=== PATIENT | male | born 1965 | race Caucasian/White ===

== ENCOUNTER 2025-06-20 15:00 | Outpatient (AMB) | payer OTHER, SELFPAY ==
--- NOTE | 2025-06-20 15:05 | A.OFFVIS_ITS ---
Vital Signs 06/20/25 15:08 Height 5 ft 8 in Weight 207 lb BMI 31.5 BP 123/74 Blood Pressure Location Rt brachial Position Sitting Pulse 66 Intake Visit Reasons: Colonoscopy Screening Intake Note: Patient new consult for pre Colonoscopy screening. Patient denies any GI issues. 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 Referred by PCP for pre colonoscopy screening This will be his second colonoscopy; his first was approximately 10 years ago and had normal results. A referral note indicates he may have had a negative Cologuard test in 2021, though the patient does not recall this. He has daily bowel movements and denies any blood in the stool, abdominal pain, nausea, vomiting, heartburn, or difficulty swallowing. His appetite is good, and he reports an intentional weight loss of 20 pounds to a current weight of 207 pounds. His past medical history is notable for hypertension and hyperlipidemia, managed with lisinopril and rosuvastatin, respectively. He does not have a personal his tory of cancer or anemia. His family history is significant for a brother who from esophageal cancer and a father with a history of prostate cancer. He denies a family history of colon or stomach cancer. Social hx: -ETOH use drinks a couple of beers per week. -denies recreational drug use -non-smoker - family hx as below -denies personal hx of CA -denies significant cardiopulmonary history -tolerated anesthesia in the past without difficulty. PFSH Medical History (Updated 06/20/25 @ 15:10 by Molly Jack CNP) Colon cancer screening Surgical History H/O colonoscopy Family History (Updated 06/20/25 @ 15:20 by Molly Jack CNP) Father Prostate CA Brother Esophageal cancer Social History (Updated 06/20/25 @ 15:06 by Zenia Ramirez) Household Members: Family Alcohol intake: current Alcohol intake frequency: a few times a month Patient Tobacco Use Status: Never used Tobacco Use of substances other than those prescribed or required for medical reasons: No Review of Systems Const Reports as per [facility] ENT Reports as per [facility] Card Reports as per [facility] Resp Reports as per [facility] GI Reports as per [facility] Reports as per [facility] Physical Exam Const General: healthy appearing, no acute distress and well developed Nutritional Appearance: average body habitus Orientation/consciousness: patient oriented x3 HEENT Head: Yes normal to inspection, Yes normocephalic and Yes atraumatic Face and sinus: Yes normal facial exam Eyes General: appearance normal, both eyes and all related structures Neck Neck: Yes normal visual inspection Resp Effort & Inspection: normal respiratory effort, able to speak in complete se ntences, no tracheal deviation and symmetric chest movement Cardio Jugular venous distension: no JVD Neuro General: patient oriented x3 Gait exam (Neuro): Normal gait present Psych Appearance: grossly normal Mental Status: mental status grossly normal Speech and movement: Normal speech and movement present Affect: normal affect Attitude: cooperative Thought process: Normal thought process present Thought content: Normal thought content present Insight: Good insight present (Psych) Judgement: Good judgement present (Psych) Assessment & Plan Assessment & Plan (1) Colon cancer screening: Code(s): Z12.11 - Encounter for screening for malignant neoplasm of colon Category: Medical Plan: The patient is a suitable candidate for a routine screening colonoscopy, as he is without gastrointestinal symptoms and his prior colonoscopy was 10 years ago. - No additional workup is deemed necessary prior to the procedure. - An order for the colonoscopy will be placed, and the scheduling team will contact the patient to arrange the appointment. - The recommended bowel preparation is a MiraLax split-dose prep, consisting of a full bottle of MiraLax, 64 ounces of Gatorade, and four laxative tablets. - Prescriptions Rx to pharmacy, However advised to purchase generic if not covered. - Follow-up will be on an as-needed basis depending on the findings of the colonoscopy. Plan Follow-up as needed Time: I spent a total of 15 minutes on the date of encounter which includes: Preparing to see the patient (reviewed previous documentation, test results and medical history) Performing a medically appropriate exam and/or evaluation Ordering medications, tests, and procedures Documenting clinical information in the health record Orders: Referrals GI Procedure Notification Z12.11 - Encounter for screening for malignant neoplasm of colon Medications: New bisacodyl take four tablets once day of colonoscopy prep 20 mg (4 x 5 mg) PO ONCE 4 tabs 0RF polyethylene glycol 3350 (Miralax) per colonoscopy prep instructions 238 grams PO ONCE 238 grams 0RF Coding Level of Care Code New Pt New Pt Level 2 (50590) Patient Type New Diagnoses Colon cancer screening Z12.11
[2025-06-20 15:08] VITALS: BP 123/74; PULSE 66; BMI 31.5
--- OUTSIDE RECORDS SUMMARY | 2025-06-20 22:33 | XMS_ITS | Data Portability ---
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 [email or web address] Not available 07/23/2021 19:47:47 Plan of Treatment Reminders Order Date Submit Date Provider Last Modified By Organization Details Last Modified Time Details Appointments PCP-Francisco murray al-30 Min 2025 12:30P Óscar WALSH [employer] Not available Not available Not available Lab hepat itis C virus Ab, serum 2023 024 [email or web address] 0 [facility] Patient Reg, [address] [place], [address], 07/27/2024 09:02:35 prost ate speci fic Ag, serum or plasm a 2023 024 [email or web address] 0 [facility] Patient Reg, [address] [place], [address], 07/27/2024 09:02:35 CMP, serum or plasm a 2023 024 [facility] Patient Reg, [address] [place], [address], 04/12/2024 19:06:27 lipid panel , serum 2023 024 [facility] Patient Reg, [address] [place], [address], 04/12/2024 19:06:28 CBC 2023 024 [facility] Patient Reg, [address] [place], [address], 04/12/2024 18:38:29 CMP, serum or plasm a [address] Patient Reg, [address] [place], [address], 05/18/2023 09:01:12 lipid panel , serum [address] Patient Reg, [address] [place], [address], 05/18/2023 09:01:12 PSA, serum or plasm a 2021 022 [facility] Patient Reg, [address] [place], [address], 09/01/2021 09:39:47 BMP, serum or plasm a 2021 022 [facility] Patient Reg, [address] [place], [address], 08/25/2021 16:06:56 lipid panel w/ direc t LDL, serum 2021 022 [facility] Patient Reg, [address] [place], [address], 09/01/2021 09:39:47 CBC 2021 [email or web address] Not available 08/18/2021 13:42:34 CMP, serum or plasm a 2021 022 [email or web address] Not available 08/11/2021 20:33:03 HbA1c (hemo globi n A1c), blood 2021 [email or web address] Not available 07/31/2021 14:15:09 TSH, serum , refle x free T4 2021 [email or web address] Not available 07/31/2021 11:19:04 CBC 2021 [email or web address] Not available 07/31/2021 11:19:04 CMP, serum or plasm a 2021 SHALINI Not available 07/23/2021 16:41:23 Referral gastr romario fine ist refer neto corey and and advis e omayra xiong. Thank you! Due for colon lauren carrion. Famil y histo ry: 2023 024 [email or web address] [facility], [address] [place] [address] , [address] Ms, [place], [address], 10/31/2024 07:25:25 Procedures None recor ded. Surgeries None recor ded. Imaging None recor ded. Medication Orders lisin opril 30 mg table t 2021 [id number] [address] [facility] [address], 08/26/2021 03:30:23 lisin opril 20 mg table t 2021 022 [id number] [id number] [address] [facility] [place], [address], 09/16/2021 10:05:16 lisin opril 10 mg table t 2021 [id number] [address] [facility] [address], 08/20/2021 10:26:59 [email or web address] astat in 20 mg table t 2021 [id number] [address] [facility] [address], 07/23/2021 14:43:30 Patient TargetsNo targets recorded. Patient InstructionsNo instructions recorded. Reason for Referral Skin Specialist Referral for Screening for malignant neoplasm of colon Please schedule and and advise patient. Thank you! Due for colon cancer screening. Family history: Referring Physician: Stacy Braxton, Internal Medicine, Encounter Date: 04/12/2024 Results Created Date Observation Date Name Description Value Unit Range Abnormal Flag Note LastModifiedBy Organization Detail LastModifiedTime 07/23/19 22 07/23/2021 COMPL ETE BLOOD COUNT AUTO DIFF white blood count 11.71 K/uL 3.5-11 .0 high Not Available [facility] Laboratory Department [address] [place] [address], 60[address] 07/23/2021 16:04:21 07/23/19 22 07/23/2021 COMPL ETE BLOOD COUNT AUTO DIFF red blood count 5.47 M/uL 3.90-5 .50 normal Not Available [facility] Department [address] [place] [address], 168[address] 07/23/2021 16:04:21 07/23/19 22 07/23/2021 COMPL ETE BLOOD COUNT AUTO DIFF hemoglobin 16.5 g/dL 14.0-1 8.0 normal Not Available [facility] Department [address] [place] [address], 348[address] 07/23/2021 16:04:21 07/23/19 22 07/23/2021 COMPL ETE BLOOD COUNT AUTO DIFF hematocrit 49.1 % 42.0-5 4.0 normal Not Available [facility] Department [address] [place] [address], 31630 07/23/2021 16:04:21 07/23/19 22 07/23/2021 COMPL ETE BLOOD COUNT AUTO DIFF mean corpuscular volume 89.8 fL 80.0-1 00.0 normal Not Available [facility] Department [address] [place] [address], 736[address] 07/23/2021 16:04:21 07/23/19 22 07/23/2021 COMPL ETE BLOOD COUNT AUTO DIFF mean corpuscular hemoglobin 30.2 pg 25.4-3 4.6 normal Not Available [facility] Department [address] [place] [address], 913[address] 07/23/2021 16:04:21 07/23/19 22 07/23/2021 COMPL ETE BLOOD COUNT AUTO DIFF mean corpuscular HGB conc 33.6 g/dL 31.0-3 7.0 normal Not Available [facility] Department [address] [place] [address], 11870 07/23/2021 16:04:21 07/23/19 22 07/23/2021 COMPL ETE BLOOD COUNT AUTO DIFF red cell distribution width 14.8 % 11.5-1 4.5 high Not Available [facility] Department [address] [place] [address], 43833 07/23/2021 16:04:21 07/23/19 22 07/23/2021 COMPL ETE BLOOD COUNT AUTO DIFF platelet count 186 K/uL 150-40 0 normal Not Available [facility] Department [address] [place] [address], 98115 07/23/2021 16:04:21 07/23/19 22 07/23/2021 COMPL ETE BLOOD COUNT AUTO DIFF neutrophils percent auto 55.5 % 35.0-6 6.0 normal Not Available [facility] Department [address] [place] [address], 19828 07/23/2021 16:04:21 07/23/19 22 07/23/2021 COMPL ETE BLOOD COUNT AUTO DIFF lymphocytes percent auto 35.0 % 25.0-4 5.0 normal Not Available [facility] Department [address] [place] [address], 746[address] 07/23/2021 16:04:21 07/23/19 22 07/23/2021 COMPL ETE BLOOD COUNT AUTO DIFF monocytes percent auto 8.3 % 0.0-13 .0 normal Not Available [facility] Department [address] [place] [address], 57138 07/23/2021 16:04:21 07/23/19 22 07/23/2021 COMPL ETE BLOOD COUNT AUTO DIFF eosinophils percent auto 0.9 % 0.0-8. 0 normal Not Available [facility] Department [address] [place] [address], 16524 07/23/2021 16:04:21 07/23/19 22 07/23/2021 COMPL ETE BLOOD COUNT AUTO DIFF basophils percent auto 0.3 % 0.0-1. 0 normal Not Available [facility] Department [address] [place], [address] 07/23/2021 16:04:21 07/23/19 22 07/23/2021 COMPL ETE BLOOD COUNT AUTO DIFF neutrophils absolute auto 6.49 K/uL 1.5-7. 5 normal Cauti on: Inter preta tion of ANC resul ts witho ut inclu becki of the WBC diffe renti al resul ts may lead to lazaro eous diagn osis; for examp le, rox ng myelo proli ferat li or lymph oprol ifera tive disor ders. Not Available [facility] Department [address] [place] [address], 533[address] 07/23/2021 16:04:21 07/23/19 22 07/23/2021 COMPL ETE BLOOD COUNT AUTO DIFF lymphocytes absolute auto 4.10 K/uL 0.8-4. 8 normal Not Available [facility] Department [address] [place] [address], 15446 07/23/2021 16:04:21 07/23/19 22 07/23/2021 COMPL ETE BLOOD COUNT AUTO DIFF monocytes absolute auto 0.97 K/uL 0.4-1. 3 normal Not Available [facility] Department [address] [place] [address], 05758 07/23/2021 16:04:21 07/23/19 22 07/23/2021 COMPL ETE BLOOD COUNT AUTO DIFF eosinophils absolute auto 0.11 K/uL 0.0-0. 8 normal Not Available [facility] Department [address] [place] [address], 38565 07/23/2021 16:04:21 07/23/19 22 07/23/2021 COMPL ETE BLOOD COUNT AUTO DIFF basophils absolute auto 0.04 K/uL 0.0-0. 6 normal Not Available [facility] Department [address] [place] [address], 53777 07/23/2021 16:04:21 07/23/19 22 07/23/2021 THYRO ID STIMU LATIN G HORMO NE thyroid stimulating hormone 2.8100 uIU/m L 0.27-4 .2 normal Not Available [facility] Department [address] [place] [address], 04882 07/23/2021 16:29:13 07/23/19 22 07/23/2021 COMPR EHENS LI MET. PANEL sodium 143 mmol/ L 136-14 5 normal Not Available [facility] Department [address] [place], [address] 07/23/2021 16:41:23 07/23/19 22 07/23/2021 COMPR EHENS LI MET. PANEL potassium 4.1 mmol/ L 3.5-5. 1 normal Not Available [facility] Department [address] [place] [address], 23662 07/23/2021 16:41:23 07/23/19 22 07/23/2021 COMPR EHENS LI MET. PANEL chloride 103 mmol/ L 98-107 normal Not Available [facility] Department [address] [place] [address], 38898 07/23/2021 16:41:23 07/23/19 22 07/23/2021 COMPR EHENS LI MET. PANEL carbon dioxide 27.1 mmol/ L 22-29 normal Not Available [facility] Department [address] [place] [address], 31843 07/23/2021 16:41:23 07/23/19 22 07/23/2021 COMPR EHENS LI MET. PANEL anion gap 17 mmol/ L 10-20 normal Not Available [facility] Department [address] [place] [address], 43997 07/23/2021 16:41:23 07/23/19 22 07/23/2021 COMPR EHENS LI MET. PANEL blood urea nitrogen 14 mg/dL 6-20 normal Not Available [facility] Laboratory Department [address] [place] [address], 33586 07/23/2021 16:41:23 07/23/19 22 07/23/2021 COMPR EHENS LI MET. PANEL creatinine 1.17 mg/dL 0.70-1 .2 normal Not Available [facility] Department [address] [place] [address], 97449 07/23/2021 16:41:23 07/23/19 22 07/23/2021 COMPR EHENS LI MET. PANEL glomerular filtration rate 69 GFR Value : ml/mi n/1.7 3 squar e meter s * If patie nt is Afric an-Am nigel n, multi ply resul t by 1.159 Chron ic Kidne y Disea se is defin ed as less than 60 ml/mi n/1.7 3 squar e meter s. Kidne y failu re is less than 15 ml/mi n/1.7 3 squar e meter s Test is not perfo rmed on patie nts under the age of 18 Not Available [facility] Department [address] [place], [address] 07/23/2021 16:41:23 07/23/19 22 07/23/2021 COMPR EHENS LI MET. PANEL glucose 106 mg/dL 70-106 normal Not Available [facility] Department [address] [place], [address] 07/23/2021 16:41:23 07/23/19 22 07/23/2021 COMPR EHENS LI MET. PANEL calcium 9.4 mg/dL 8.4-10 .3 normal Not Available [facility] Department [address] [place], [address] 07/23/2021 16:41:23 07/23/19 22 07/23/2021 COMPR EHENS LI MET. PANEL bilirubin total 0.5 mg/dL 0.2-1. 2 normal Not Available [facility] Department [address] [place], [address] 07/23/2021 16:41:23 07/23/19 22 07/23/2021 COMPR EHENS LI MET. PANEL aspartate amino transferase 15 U/L 5-40 normal Not Available [facility] Laboratory Department [address] [place], [address] 07/23/2021 16:41:23 07/23/19 22 07/23/2021 COMPR EHENS LI MET. PANEL alanine aminotransfe rase 22 U/L 5-41 normal Not Available [facility] Laboratory Department [address] [place], [address] 07/23/2021 16:41:23 07/23/19 22 07/23/2021 COMPR EHENS LI MET. PANEL total protein 7.3 g/dL 6.4-8. 3 normal Not Available [facility] Department [address] [place], [address] 07/23/2021 16:41:23 07/23/19 22 07/23/2021 COMPR EHENS LI MET. PANEL albumin level 4.7 g/dL 3.5-5. 2 normal Not Available [facility] Department [address] [place], [address] 07/23/2021 16:41:23 07/23/19 22 07/23/2021 COMPR EHENS LI MET. PANEL globulin 2.6 gm/dL 2.0-3. 5 normal Not Available [facility] Department [address] [place] [address], 35224 07/23/2021 16:41:23 07/23/19 22 07/23/2021 COMPR EHENS LI MET. PANEL albumin globulin ratio 1.8 % 1.1-2. 5 normal Not Available [facility] Department [address] [place] [address], 12543 07/23/2021 16:41:23 07/23/19 22 07/23/2021 COMPR EHENS LI MET. PANEL alkaline phosphatase 92 U/L 40-129 normal Not Available [facility] Laboratory Department [address] [place] [address], 27893 07/23/2021 16:41:23 07/23/19 22 07/23/2021 HEMOG LOBIN A1C hemoglobin A1C % 5.6 % 4.0-5. 7 normal % of the total HgB Inter preta tion ----- ----- ----- --- ----- ----- ----- - <5.7 Consi stent with the absen ce of diabe herve 5.7-6 .4 Consi stent with incre ased risk for diabe herve (pred iabet es) > or = to 6.5 Consi stent with Diabe herve Not Available [facility] Department [address] [place] [address], 13311 07/23/2021 19:45:50 08/11/19 22 08/11/2021 COMPL ETE BLOOD COUNT AUTO DIFF white blood count 10.69 K/uL 3.5-11 .0 normal Not Available [facility] Department [address] [place] [address], 18826 08/11/2021 19:48:51 08/11/19 22 08/11/2021 COMPL ETE BLOOD COUNT AUTO DIFF red blood count 5.68 M/uL 3.90-5 .50 high Not Available [facility] Department [address] [place], [address] 08/11/2021 19:48:51 08/11/19 22 08/11/2021 COMPL ETE BLOOD COUNT AUTO DIFF hemoglobin 17.0 g/dL 14.0-1 8.0 normal Not Available [facility] Department [address] [place], [address] 08/11/2021 19:48:51 08/11/19 22 08/11/2021 COMPL ETE BLOOD COUNT AUTO DIFF hematocrit 50.9 % 42.0-5 4.0 normal Not Available [facility] Department [address] [place] [address], 43322 08/11/2021 19:48:51 08/11/19 22 08/11/2021 COMPL ETE BLOOD COUNT AUTO DIFF mean corpuscular volume 89.6 fL 80.0-1 00.0 normal Not Available [facility] Department [address] [place] [address], 42290 08/11/2021 19:48:51 08/11/19 22 08/11/2021 COMPL ETE BLOOD COUNT AUTO DIFF mean corpuscular hemoglobin 29.9 pg 25.4-3 4.6 normal Not Available [facility] Department [address] [place] [address], 56390 08/11/2021 19:48:51 08/11/19 22 08/11/2021 COMPL ETE BLOOD COUNT AUTO DIFF mean corpuscular HGB conc 33.4 g/dL 31.0-3 7.0 normal Not Available [facility] Department [address] [place] [address], 46015 08/11/2021 19:48:51 08/11/19 22 08/11/2021 COMPL ETE BLOOD COUNT AUTO DIFF red cell distribution width 14.5 % 11.5-1 4.5 normal Not Available [facility] Department [address] [place] [address], 79307 08/11/2021 19:48:51 08/11/19 22 08/11/2021 COMPL ETE BLOOD COUNT AUTO DIFF platelet count 201 K/uL 150-40 0 normal Not Available [facility] Department [address] [place] [address], 84842 08/11/2021 19:48:51 08/11/19 22 08/11/2021 COMPL ETE BLOOD COUNT AUTO DIFF neutrophils percent auto 56.7 % 35.0-6 6.0 normal Not Available [facility] Department [address] [place] [address], 38544 08/11/2021 19:48:51 08/11/19 22 08/11/2021 COMPL ETE BLOOD COUNT AUTO DIFF lymphocytes percent auto 33.7 % 25.0-4 5.0 normal Not Available [facility] Department [address] [place] [address], 16334 08/11/2021 19:48:51 08/11/19 22 08/11/2021 COMPL ETE BLOOD COUNT AUTO DIFF monocytes percent auto 8.2 % 0.0-13 .0 normal Not Available [facility] Department [address] [place] [address], 67661 08/11/2021 19:48:51 08/11/19 22 08/11/2021 COMPL ETE BLOOD COUNT AUTO DIFF eosinophils percent auto 1.0 % 0.0-8. 0 normal Not Available [facility] Department [address] [place] [address], 25842 08/11/2021 19:48:51 08/11/19 22 08/11/2021 COMPL ETE BLOOD COUNT AUTO DIFF basophils percent auto 0.4 % 0.0-1. 0 normal Not Available [facility] Department [address] [place] [address], 60241 08/11/2021 19:48:51 08/11/19 22 08/11/2021 COMPL ETE BLOOD COUNT AUTO DIFF neutrophils absolute auto 6.06 K/uL 1.5-7. 5 normal Cauti on: Inter preta tion of ANC resul ts witho ut inclu becki of the WBC diffe renti al resul ts may lead to lazaro eous diagn osis; for examp le, rox ng myelo proli ferat li or lymph oprol ifera tive disor ders. Not Available [facility] Department [address] [place] [address], 55704 08/11/2021 19:48:51 08/11/19 22 08/11/2021 COMPL ETE BLOOD COUNT AUTO DIFF lymphocytes absolute auto 3.60 K/uL 0.8-4. 8 normal Not Available [facility] Department [address] [place] [address], 71601 08/11/2021 19:48:51 08/11/19 22 08/11/2021 COMPL ETE BLOOD COUNT AUTO DIFF monocytes absolute auto 0.88 K/uL 0.4-1. 3 normal Not Available [facility] Department [address] [place] [address], 72174 08/11/2021 19:48:51 08/11/19 22 08/11/2021 COMPL ETE BLOOD COUNT AUTO DIFF eosinophils absolute auto 0.11 K/uL 0.0-0. 8 normal Not Available [facility] Department [address] [place] [address], 07514 08/11/2021 19:48:51 08/11/19 22 08/11/2021 COMPL ETE BLOOD COUNT AUTO DIFF basophils absolute auto 0.04 K/uL 0.0-0. 6 normal Not Available [facility] Department [address] [place] [address], 84602 08/11/2021 19:48:51 08/11/19 22 08/11/2021 COMPR EHENS LI MET. PANEL sodium 140 mmol/ L 136-14 5 normal Not Available [facility] Department [address] [place] [address], 00421 08/11/2021 20:33:03 08/11/19 22 08/11/2021 COMPR EHENS LI MET. PANEL potassium 4.7 mmol/ L 3.5-5. 1 normal Not Available [facility] Department [address] [place] [address], 04976 08/11/2021 20:33:03 08/11/19 22 08/11/2021 COMPR EHENS LI MET. PANEL chloride 102 mmol/ L 98-107 normal Not Available [facility] Department [address] [place] [address], 71719 08/11/2021 20:33:03 08/11/19 22 08/11/2021 COMPR EHENS LI MET. PANEL carbon dioxide 25.4 mmol/ L 22-29 normal Not Available [facility] Department [address] [place] [address], 31508 08/11/2021 20:33:03 08/11/19 22 08/11/2021 COMPR EHENS LI MET. PANEL anion gap 17 mmol/ L 10-20 normal Not Available [facility] Department [address] [place] [address], 24293 08/11/2021 20:33:03 08/11/19 22 08/11/2021 COMPR EHENS LI MET. PANEL blood urea nitrogen 13 mg/dL 6-20 normal Not Available [facility] Laboratory Department [address] [place], [address] 08/11/2021 20:33:03 08/11/19 22 08/11/2021 COMPR EHENS LI MET. PANEL creatinine 0.99 mg/dL 0.70-1 .2 normal Not Available [facility] Department [address] [place], [address] 08/11/2021 20:33:03 08/11/19 22 08/11/2021 COMPR EHENS LI MET. PANEL glomerular filtration rate 85 GFR Value : ml/mi n/1.7 3 squar e meter s * If patie nt is Afric an-Am nigel n, multi ply resul t by 1.159 Chron ic Kidne y Disea se is defin ed as less than 60 ml/mi n/1.7 3 squar e meter s. Kidne y failu re is less than 15 ml/mi n/1.7 3 squar e meter s Test is not perfo rmed on patie nts under the age of 18 Not Available [facility] Department [address] [place], [address] 08/11/2021 20:33:03 08/11/19 22 08/11/2021 COMPR EHENS LI MET. PANEL glucose 103 mg/dL 70-106 normal Not Available [facility] Department [address] [place], [address] 08/11/2021 20:33:03 08/11/19 22 08/11/2021 COMPR EHENS LI MET. PANEL calcium 9.7 mg/dL 8.4-10 .3 normal Not Available [facility] Department [address] [place], [address] 08/11/2021 20:33:03 08/11/19 22 08/11/2021 COMPR EHENS LI MET. PANEL bilirubin total 1.1 mg/dL 0.2-1. 2 normal Not Available [facility] Department [address] [place], [address] 08/11/2021 20:33:03 08/11/19 22 08/11/2021 COMPR EHENS LI MET. PANEL aspartate amino transferase 16 U/L 5-40 normal Not Available [facility] Laboratory Department [address] [place] [address], 21585 08/11/2021 20:33:03 08/11/19 22 08/11/2021 COMPR EHENS LI MET. PANEL alanine aminotransfe rase 23 U/L 5-41 normal Not Available [facility] Laboratory Department [address] [place], [address] 08/11/2021 20:33:03 08/11/19 22 08/11/2021 COMPR EHENS LI MET. PANEL total protein 7.3 g/dL 6.4-8. 3 normal Not Available [facility] Department [address] [place] [address], 50763 08/11/2021 20:33:03 08/11/19 22 08/11/2021 COMPR EHENS LI MET. PANEL albumin level 4.9 g/dL 3.5-5. 2 normal Not Available [facility] Department [address] [place] [address], 70903 08/11/2021 20:33:03 08/11/19 22 08/11/2021 COMPR EHENS LI MET. PANEL globulin 2.4 gm/dL 2.0-3. 5 normal Not Available [facility] Department [address] [place] [address], 95619 08/11/2021 20:33:03 08/11/19 22 08/11/2021 COMPR EHENS LI MET. PANEL albumin globulin ratio 2.0 % 1.1-2. 5 normal Not Available [facility] Department [address] [place] [address], 57532 08/11/2021 20:33:03 08/11/19 22 08/11/2021 COMPR EHENS LI MET. PANEL alkaline phosphatase 93 U/L 40-129 normal Not Available [facility] Laboratory Department [address] [place] [address], 27628 08/11/2021 20:33:03 08/11/19 22 08/11/2021 MORPH OLOGY RBC morphology UNREMA RKABLE Not Available [facility] Department [address] [place] [address], 18549 08/11/2021 20:46:10 08/25/19 22 08/25/2021 BASIC METAB OLIC PANEL sodium 141 mmol/ L 136-14 5 normal Not Available [facility] Department [address] [place] [address], 82537 08/25/2021 16:06:56 08/25/19 22 08/25/2021 BASIC METAB OLIC PANEL potassium 4.4 mmol/ L 3.5-5. 1 normal Not Available [facility] Department [address] [place] [address], 28972 08/25/2021 16:06:56 08/25/19 22 08/25/2021 BASIC METAB OLIC PANEL chloride 104 mmol/ L 98-107 normal Not Available [facility] Department [address] [place] [address], 86848 08/25/2021 16:06:56 08/25/19 22 08/25/2021 BASIC METAB OLIC PANEL carbon dioxide 26.4 mmol/ L 22-29 normal Not Available [facility] Department [address] [place] [address], 29073 08/25/2021 16:06:56 08/25/19 22 08/25/2021 BASIC METAB OLIC PANEL anion gap 15 mmol/ L 10-20 normal Not Available [facility] Department [address] [place] [address], 44132 08/25/2021 16:06:56 08/25/19 22 08/25/2021 BASIC METAB OLIC PANEL blood urea nitrogen 16 mg/dL 6-20 normal Not Available [facility] Laboratory Department [address] [place] [address], 38210 08/25/2021 16:06:56 08/25/19 22 08/25/2021 BASIC METAB OLIC PANEL creatinine 1.06 mg/dL 0.70-1 .2 normal Not Available [facility] Department [address] [place] [address], 24247 08/25/2021 16:06:56 08/25/19 22 08/25/2021 BASIC METAB OLIC PANEL glomerular filtration rate 78 GFR Value : ml/mi n/1.7 3 squar e meter s * If patie nt is Afric an-Am nigel n, multi ply resul t by 1.159 Chron ic Kidne y Disea se is defin ed as less than 60 ml/mi n/1.7 3 squar e meter s. Jerry xie re is less than 15 ml/mi n/1.7 3 squar e meter s Test is not perfo rmed on patie nts under the age of 18 Not Available [facility] Department [address] [place], [address] 08/25/2021 16:06:56 08/25/19 22 08/25/2021 BASIC METAB OLIC PANEL glucose 126 mg/dL 70-106 high Not Available [facility] Department [address] [place], [address] 08/25/2021 16:06:56 08/25/19 22 08/25/2021 BASIC METAB OLIC PANEL calcium 9.4 mg/dL 8.4-10 .3 normal Not Available [facility] Department [address] [place], [address] 08/25/2021 16:06:56 08/25/19 22 08/25/2021 LIPID PANEL WITH REFLE X triglyceride s w/ reflex LDL 192 mg/dL 30-150 high Refer ence Range s: <150 mg/dl Charlee l 150-1 99 mg/dl Borde rline High 200-4 99 mg/dl High >500 mg/dl Very High Not Available [facility] Department [address] [place], [address] 08/25/2021 16:06:57 08/25/19 22 08/25/2021 LIPID PANEL WITH REFLE X cholesterol 175 mg/dL 100-20 0 normal Not Available [facility] Department [address] [place], [address] 08/25/2021 16:06:57 08/25/19 22 08/25/2021 LIPID PANEL WITH REFLE X LDL cholesterol calculated 99.6 mg/dL 0-100 normal Natio nal Bertha stero l Educa tion Progr am sugge sts the follo wing refer ence range : Optim al <100 mg/dL Near optim al/ab ove optim al 100-1 29 mg/dL Borde rline high 130-1 59 mg/dL High 160-1 89 mg/dL Very high >190 mg/dL Not Available [facility] Department [address] [place], [address] 08/25/2021 16:06:57 08/25/19 22 08/25/2021 LIPID PANEL WITH REFLE X HDL cholesterol 37.0 mg/dL 40-60 low Major risk facto r for CHD: <40 mg/dL Negat li risk facto r for CHD: >=60 mg/dL Not Available [facility] Department [address] [place] [address], [address] 08/25/2021 16:06:57 08/25/19 22 08/25/2021 LIPID PANEL WITH REFLE X chol HDL ratio 4.73 Risk CHOL/ HDL CHOL/ HDL Ratio Male Femal e 1/2 AVERA GE 3.43 3.27 AVERA GE 4.97 4.44 2 X AVERA GE 9.55 7.05 3 X AVERA GE 23.39 11.04 Not Available [facility] Department [address] [place] [address], [address] 08/25/2021 16:06:57 08/25/19 22 08/26/2021 LDL BERTHA STERO L DIREC T LDL cholesterol direct 111.4 mg/dL 0-100 high Natio nal Bertha stero l Educa tion Progr am sugge sts the follo wing refer ence range : Optim al <100 mg/dL Near optim al/ab ove optim al 100-1 29 mg/dL Borde rline high 130-1 59 mg/dL High 160-1 89 mg/dL Very high >190 mg/dL Not Available [facility] Department [address] [place] [address], [address] 08/26/2021 14:24:13 08/25/19 22 08/26/2021 PROST ATE SPECI FIC ANTIG EN prostate specific antigen 2.29 NG/mL 0.0-4. 0 normal Not Available [facility] Department [address] [place], [address] 08/26/2021 17:10:55 04/12/20 24 04/12/2024 COMPL ETE BLOOD COUNT NO DIFF white blood count 13.15 K/uL 3.5-11 .0 high Not Available [facility] Department [address] [place] [address], [address] 04/12/2024 18:38:29 04/12/20 24 04/12/2024 COMPL ETE BLOOD COUNT NO DIFF red blood count 5.33 M/uL 3.90-5 .50 normal Not Available [facility] Department [address] [place], [address] 04/12/2024 18:38:29 04/12/2004/12/2024 COMPL ETE BLOOD COUNT NO DIFF hemoglobin 16.1 g/dL 14.0-1 8.0 normal Not Available [facility] Department [address] [place], [address] 04/12/2024 18:38:29 04/12/2004/12/2024 COMPL ETE BLOOD COUNT NO DIFF hematocrit 48.0 % 42.0-5 4.0 normal Not Available [facility] Department [address] [place], [address] 04/12/2024 18:38:29 04/12/2004/12/2024 COMPL ETE BLOOD COUNT NO DIFF mean corpuscular volume 90.1 fL 80.0-1 00.0 normal Not Available [facility] Department [address] [place] [address], [address] 04/12/2024 18:38:29 04/12/20 24 04/12/2024 COMPL ETE BLOOD COUNT NO DIFF mean corpuscular hemoglobin 30.2 pg 25.4-3 4.6 normal Not Available [facility] Department [address] [place], [address] 04/12/2024 18:38:29 04/12/20 24 04/12/2024 COMPL ETE BLOOD COUNT NO DIFF mean corpuscular HGB conc 33.5 g/dL 31.0-3 7.0 normal Not Available [facility] Department [address] [place], [address] 04/12/2024 18:38:29 04/12/20 24 04/12/2024 COMPL ETE BLOOD COUNT NO DIFF red cell distribution width 14.9 % 11.5-1 4.5 high Not Available [facility] Department [address] [place], [address] 04/12/2024 18:38:29 04/12/20 24 04/12/2024 COMPL ETE BLOOD COUNT NO DIFF platelet count 221 K/uL 150-40 0 normal Not Available [facility] Department [address] [place], [address] 04/12/2024 18:38:29 10/0304/12/2024 COMPL ETE BLOOD COUNT NO DIFF neutrophils absolute auto 7.57 K/uL 1.5-7. 5 high Not Available [facility] Department [address] [place], [address] 04/12/2024 18:38:29 04/12/2004/12/2024 COMPR EHENS LI MET. PANEL sodium 141 mmol/ L 136-14 5 normal Not Available [facility] Department [address] [place] [address], [address] 04/12/2024 19:06:27 04/12/2004/12/2024 COMPR EHENS LI MET. PANEL potassium 4.3 mmol/ L 3.5-5. 1 normal Not Available [facility] Department [address] [place] [address], [address] 04/12/2024 19:06:27 04/12/2004/12/2024 COMPR EHENS LI MET. PANEL chloride 100 mmol/ L 98-107 normal Not Available [facility] Department [address] [place] [address], [address] 04/12/2024 19:06:27 04/12/2004/12/2024 COMPR EHENS LI MET. PANEL carbon dioxide 26.6 mmol/ L 22-29 normal Not Available [facility] Department [address] [place] [address], [address] 04/12/2024 19:06:27 04/12/20 24 04/12/2024 COMPR EHENS LI MET. PANEL anion gap 18 mmol/ L 10-20 normal Not Available [facility] Department [address] [place] [address], [address] 04/12/2024 19:06:27 04/12/2004/12/2024 COMPR EHENS LI MET. PANEL blood urea nitrogen 12 mg/dL 6-20 normal Not Available [facility] Department [address] [place], [address] 04/12/2024 19:06:27 04/12/20 24 04/12/2024 COMPR EHENS LI MET. PANEL creatinine 0.97 mg/dL 0.70-1 .2 normal Not Available [facility] Department [address] [place] [address], [address] 04/12/2024 19:06:27 04/12/20 24 04/12/2024 COMPR EHENS LI MET. PANEL estimated glomerular filt rate 90 GFR Value : mL/mi n/1.7 3 squar e meter s Calcu latio n: CKD-E PI Creat inine Equat ion (2020 ) Chron ic Kidne y Disea se is defin ed as eithe r of the follo wing prese nt for >= 3 month s: - GFR less than 60 mL/mi n/1.7 3 squar e meter s. - Micro album in:Ur . Creat inine Ratio >= 30 mg/g or other marke rs of kidne y damag e Kidne y failu re is less than 15 mL/mi n/1.7 3 squar e meter s This test is not perfo rmed in patie nts under the age of 18. Not Available [facility] Department [address] [place] [address], [address] 04/12/2024 19:06:27 04/12/20 24 04/12/2024 COMPR EHENS LI MET. PANEL glucose 111 mg/dL 70-106 high Not Available [facility] Department [address] [place] [address], [address] 04/12/2024 19:06:27 04/12/20 24 04/12/2024 COMPR EHENS LI MET. PANEL calcium 9.4 mg/dL 8.4-10 .3 normal Not Available [facility] Department [address] [place] [address], [address] 04/12/2024 19:06:27 04/12/20 24 04/12/2024 COMPR EHENS LI MET. PANEL bilirubin total 0.7 mg/dL 0.2-1. 2 normal Not Available [facility] Department [address] [place], [address] 04/12/2024 19:06:27 04/12/20 24 04/12/2024 COMPR EHENS LI MET. PANEL aspartate amino transferase 17 U/L 5-40 normal Not Available [facility] Department [address] [place], [address] 04/12/2024 19:06:27 04/12/20 24 04/12/2024 COMPR EHENS LI MET. PANEL alanine aminotransfe rase 23 U/L 5-41 normal Not Available [facility] Department [address] [place], [address] 04/12/2024 19:06:27 04/12/2004/12/2024 COMPR EHENS LI MET. PANEL total protein 7.2 g/dL 6.4-8. 3 normal Not Available [facility] Department [address] [place], [address] 04/12/2024 19:06:27 04/12/20 24 04/12/2024 COMPR EHENS LI MET. PANEL albumin level 4.8 g/dL 3.5-5. 2 normal Not Available [facility] Department [address] [place], [address] 04/12/2024 19:06:27 04/12/2004/12/2024 COMPR EHENS LI MET. PANEL globulin 2.4 gm/dL 2.0-3. 5 normal Not Available [facility] Department [address] [place] [address], [address] 04/12/2024 19:06:27 04/12/2004/12/2024 COMPR EHENS LI MET. PANEL albumin globulin ratio 2.0 % 1.1-2. 5 normal Not Available [facility] Department [address] [place], [address] 04/12/2024 19:06:27 04/12/2004/12/2024 COMPR EHENS LI MET. PANEL alkaline phosphatase 86 U/L 40-129 normal Not Available [facility] Department [address] [place], [address] 04/12/2024 19:06:27 04/12/2004/12/2024 LIPID PANEL WITH REFLE X triglyceride s w/ reflex LDL 277 mg/dL 30-150 high Refer ence Range s: <150 mg/dl Charlee l 150-1 99 mg/dl Borde rline High 200-4 99 mg/dl High >500 mg/dl Very High Not Available [facility] Department [address] [place], [address] 04/12/2024 19:06:28 04/12/20 24 04/12/2024 LIPID PANEL WITH REFLE X cholesterol 179 mg/dL 100-20 0 normal Not Available [facility] Department [address] [place], [address] 04/12/2024 19:06:28 04/12/20 24 04/12/2024 LIPID PANEL WITH REFLE X LDL cholesterol calculated 95.6 mg/dL 0-100 normal Natio nal Bertha stero l Educa tion Progr am sugge sts the follo wing refer ence range : Optim al <100 mg/dL Near optim al/ab ove optim al 100-1 29 mg/dL Borde rline high 130-1 59 mg/dL High 160-1 89 mg/dL Very high >190 mg/dL Not Available [facility] Department [address] [place], [address] 04/12/2024 19:06:28 04/12/20 24 04/12/2024 LIPID PANEL WITH REFLE X HDL cholesterol 28.0 mg/dL 40-60 low Major risk facto r for CHD: <40 mg/dL Negat li risk facto r for CHD: >=60 mg/dL Not Available [facility] Department [address] [place] [address], [address] 04/12/2024 19:06:28 04/12/20 24 04/12/2024 LIPID PANEL WITH REFLE X chol HDL ratio 6.39 Risk CHOL/ HDL CHOL/ HDL Ratio Male Femal e 1/2 AVERA GE 3.43 3.27 AVERA GE 4.97 4.44 2 X AVERA GE 9.55 7.05 3 X AVERA GE 23.39 11.04 Not Available [facility] Department [address] [place] [address], [address] 04/12/2024 19:06:28 08/25/19 22 05/08/2020 elect reyes montiel am No observ ation record ed. BARCODE Not Available 2021 13:38:30 Result Notes None recorded. Problems Name Problem SNOMED Code Status Onset Date Resolution Date Notes Provider Name and Address Organization Details Recorded Time Hyperlipide chika 94727455 Active 2020 INOCENCIO Cordero [place] - [facility] 10:43:33 Elevated blood-press ure reading without diagnosis of hypertensio n 260770086 Completed 202107/23/2021 NINOSKA RIVAS [address] [place] [address] [place], [address], [facility] 2 14:55:00 Prediabetes 881097813 Active 2021 NINOSKA RIVAS [address] [facility] [place], [address], [facility] 2 14:44:22 Essential hypertensio n 25441191 Active 2021 NINOSKA RIVAS [address] [facility] [place], [address], [facility] 2 14:55:08 Problem Notes None recorded. Procedures Surgical History Date Name Laterality Status Provider Name and Address Organization Details Recorded Time 08/25/19 PHQ-9 Patient Health Questionnaire completed Chen Peña MD [address] [facility] [place], [address], [facility] 08/25/2021 08:29:43 07/23/19 22 PHQ-9 Patient Health Questionnaire completed NINOSKA RIVAS [address] [facility] [place], [address], [facility] 07/23/2021 14:56:04 01/18/20 17 colonoscopy completed SAUMYA Shields [facility] 08/15/2023 13:10:15 Imaging Results None recorded. Procedure Notes None recorded. Medical Equipment None Reported. Allergies No known drug allergies Medications Name Sig Start Date Stop Date Status Note LastModified by Organization Details LastModified Time atorvasta tin 20 mg tablet TAKE 1 TABLET BY MOUTH EVERY DAY 2024 active cpe 07-24-25 Not Available Not Available Not Available lisinopri l 20 mg tablet Take 1 tablet every day by oral route for 30 days. 09/15 completed dose increased Not Available Not Available Not Available lisinopri l 10 mg tablet TAKE 1 TABLET BY MOUTH EVERY DAY FOR 30 DAYS 08/20 completed dose increased Not Available Not Available Not Available lisinopri l 30 mg tablet TAKE 1 TABLET BY MOUTH EVERY DAY 2024 active pov 07-24-25 Not Available Not Available Not Available diazepam 5 mg tablet 07/23 completed Pt states not taking - kd 07/23/2021 Not Available Not Available Not Available Vitals Date Recorded Systolic And Diastolic Systolic And Diastolic Provider Name and Address Organization Details Last Updated DateTime 07/23/2021 142/90 mm[Hg] 130/72 mm[Hg] NINOSKA RIVAS [address] [place], [address], [facility] 07/23/2021 15:03:18 Date Recorded Body height Body mass index (BMI) Body weight Heart rate Provider Name and Address Organization Details Last Updated DateTime 07/23/2021 172.72 cm 34.7 kg/m2 299980.06 g 60 /min Yessi Naranjo [facility] 07/23/2021 14:28:58 Date Recorded Systolic And Diastolic Provider Name and Address Organization Details Last Updated DateTime 08/11/2021 138/86 mm[Hg] Francisco RIVAS [address] [place], [address], [facility] 08/11/2021 10:54:27 Date Recorded Body height Body mass index (BMI) Body weight Heart rate Systolic And Diastolic Provider Name and Address Organization Details Last Updated DateTime 08/11/2021 172.72 cm 33.9 kg/m2 025563.8 g 70 /min 140/86 mm[Hg] Miriam Montero RN [facility] 08/11/2021 10:40:49 Date Recorded Body height Body mass index (BMI) Body weight Heart rate Oxygen saturation Systolic And Diastolic Provider Name and Address Organization Details Last Updated DateTime 2 171.45 cm 34.7 kg/m2 443013. 28 g 68 /min 96 % 146/100 mm[Hg] SAUMYA Shields [facility] 2 08:03:49 Date Recorded Body weight Oxygen saturation Heart rate Systolic And Diastolic Provider Name and Address Organization Details Last Updated DateTime 04/12/2024 84449.14 g 96 % 78 /min 118/72 mm[Hg] Madison Devine [facility] 04/12/2024 16:26:27 Date Recorded Systolic And Diastolic Provider Name and Address Organization Details Last Updated DateTime 04/15/2022 116/78 mm[Hg] NINOSKA Marsh [address] [place], [address], [facility] 04/15/2022 10:17:55 Date Recorded Body height Body mass index (BMI) Body weight Heart rate Oxygen saturation Systolic And Diastolic Provider Name and Address Organization Details Last Updated DateTime 2 171.45 cm 33.6 kg/m2 35045.1 4 g 77 /min 95 % 120/82 mm[Hg] Miriam Montero RN [facility] 2 10:08:23 Social History Question Answer Notes LastModified by Organization Details LastModified Time Tobacco Smoking Status Never Smoker Yessi miranda, [facility] 07/23/2021 14:31:03 Do You Have An Advance Directive? Yes Karen Goldenphey - [email or web address] Information not available 07/23/2021 Do You Wear A Helmet When Biking? No Information not available 07/23/2021 Are You Blind Or Do You Have Difficulty Seeing? No [email or web address] Information not available 07/23/2021 Is Blood Transfusion Acceptable In An Emergency? Yes [email or web address] Information not available 07/23/2021 What Is Your Level Of Caffeine Consumption? Moderate 2 Coffees And 1 Coke Daily Information not available 08/25/2021 Are You A Caregiver? No [email or web address] Information not available 07/23/2021 In The 14 Days Before Symptom Onset, Have You Had Close Contact With A Laboratory-confi rmed COVID-19 While That Case Was Ill? No [email or web address] Information not available 07/23/2021 In The 14 Days Before Symptom Onset, Have You Had Close Contact With A Person Who Is Under Investigation For COVID-19 While That Person Was Ill? No [email or web address] Information not available 07/23/2021 Have You Been To An Area Known To Be High Risk For COVID-19? No [email or web address] Information not available 07/23/2021 Are You Deaf Or Do You Have Serious Difficulty Hearing? No [email or web address] Information not available 07/23/2021 What Type Of Diet Are You Following? REGULAR [email or web address] Information not available 07/23/2021 What Is The Highest Grade Or Level Of School You Have Completed Or The Highest Degree You Have Received? [id number] [email or web address] Information not available 07/23/2021 How Many Days Of Moderate To Strenuous Exercise, Like A Brisk Walk, Did You Do In The Last 7 Days? 3 [email or web address] Information not available 07/23/2021 On Those Days That You Engage In Moderate To Strenuous Exercise, How Many Minutes, On Average, Do You Exercise? 30 [email or web address] Information not available 07/23/2021 Are There Any Guns Present In Your Home? No [email or web address] Information not available 07/23/2021 Which Of Your Hands Is Dominant? Right [email or web address] Information not available 07/23/2021 Where Do You Live? SingleLevelHouse [email or web address] Information not available 07/23/2021 Date Of Tobacco Screen 04/12/2024 [email or web address] Information not available 04/12/2024 Members Of Household 2 Information not available 08/25/2021 How Long Have You Lived There? 1 [email or web address] Information not available 07/23/2021 Do You Have A Medical Power Of Special Procedures Tech? No [email or web address] Information not available 07/23/2021 What Was The Date Of Your Most Recent Tobacco Screening? 04/12/2024 [email or web address] Information not available 04/12/2024 How Many Children Do You Have? 0 [email or web address] Information not available 07/23/2021 Have You Ever Been Counseled For Unhealthy Alcohol Use? No Information not available 08/25/2021 Do You Have Any Pets? Yes Cat [email or web address] Information not available 07/23/2021 Do You Use Protection During Sex? No [email or web address] Information not available 07/23/2021 What Is Your Relationship Status? Karen [email or web address] Information not available 07/23/2021 Do You Use Your Seat Belt Or Car Seat Routinely? Yes [email or web address] Information not available 07/23/2021 Are You Sexually Active? Yes [email or web address] Information not available 07/23/2021 Do You Have Smoke And Carbon Monoxide Detectors In Your Home? Yes Information not available 07/23/2021 Are There Any Smokers In Your House? No [email or web address] Information not available 07/23/2021 Do You Participate In Social Media? No [email or web address] Information not available 07/23/2021 Do You Use Sunscreen Routinely? Yes [email or web address] Information not available 07/23/2021 Has Tobacco Cessation Counseling Been Provided? No Information not available 08/25/2021 Do You Have Difficulty Walking Or Climbing Stairs? No [email or web address] Information not available 07/23/2021 Are You Currently In School? No [email or web address] Information not available 07/23/2021 Do You Have Any Dietary Restrictions? No Information not available 07/23/2021 Sex: Male Functional Status Question Answer Note LastModified by [email or web address] Details LastModified Time Do you use any illicit or recreational drugs? No [email or web address] Information not available 07/23/2021 Do you or have you ever used any other forms of tobacco or nicotine? No [email or web address] Information not available 07/23/2021 What is your level of alcohol consumption? Moderate 5 beers a week Information not available 08/25/2021 Are you able to walk independently without assistance or assistive devices? YESWOREST [email or web address] Information not available 07/23/2021 Do you have difficulty doing errands alone? No [email or web address] Information not available 07/23/2021 Do you have difficulty dressing, bathing, grooming, or toileting? No [email or web address] Information not available 07/23/2021 What is your exercise level? Moderate [email or web address] Information not available 07/23/2021 Mental Status Question Answer Note LastModified by Organizat ion Details LastModified Time Do you feel stressed (tense, restless, nervous, or anxious, or unable to sleep at night)? [id number] [email or web address] Information not available 07/23/2021 Do you have difficulty concentrating, remembering or making decisions? No Information no t available 07/23/2021 Family History Relationship Description Onset Age of this Age Resolved Age Notes LastModified by Organization Details LastModified Time Mother Rheumatoid arthritis [email or web address] Not available 07/08 10:44:42 Mother Hypertensive disorder [email or web address] Not available 07/15 12:00:55 Mother Cerebrovascu lar accident 81 [email or web address] Not available 12:02:29 Father Malignant neoplasm of prostate 70 [email or web address] Not available 2021 14:46:50 Father Atrial fibrillation [email or web address] Not available 12:01:11 Brother Malignant neoplasm of esophagus 32 [email or web address] Not available 2021 14:46:29 Medical History No medical history recorded. Immunizations Vaccine Type Date Status Note Provider Nam e and Address Organization Details Recorded Time COVID-19, mRNA, LNP-S, PF, 100 mcg/0.5mL dose or 50 mcg/0.25mL dose 1 completed INOCENCIO Cordero, [facility] 07/08/2021 10:03:23 Influenza, split virus, quadrivalent, preservative 1 completed INOCENCIO Cordero, [facility] 07/08/2021 10:03:38 COVID-19, mRNA, LNP-S, PF, 30 mcg/0.3 mL dose 1 completed Miriam Montero RN null, [facility] 08/11/2021 10:42:39 COVID-19, mRNA, LNP-S, PF, 30 mcg/0.3 mL dose 1 completed Miriam Montero RN null, [facility] 08/11/2021 10:43:05 influenza, unspecified formulation 3 completed SAUMYA Shields null, [facility] 08/15/2023 13:03:52 COVID-19, mRNA, LNP-S, bivalent, PF, 50 mcg/0.5 mL or 25mcg/0.25 mL dose 2 completed SAUMYA Shields null, [facility] 08/15/2023 13:05:03 COVID-19, mRNA, LNP-S, PF, 50 mcg/0.5 mL 3 completed Mollymary ann Weinbergl, RMA null, [facility] 08/15/2023 13:05:47 Tdap 2 completed Molly Sher, RMA null, [facility] 08/25/2021 08:51:14 COVID-19, mRNA, LNP-S, PF, lluvia-sucrose, 30 mcg/0.3 mL 5 completed Kamilla Bah LPN null, [facility] 03/21/2025 16:46:48 Influenza, recombinant, trivalent, PF 5 completed Kamilla Bah LPN null, [facility] 03/21/2025 16:46:48 Past Encounters Encounter ID Performer Location Encounter Start Date Encounter Closed Date Diagnosis/Indication Diagnosis SNOMED-CT Code Diagnosis ICD10 Code Diagnosis IMO Codes Diagnosis Note [id number] NINOSKA RIVAS [facility] [address] [facility] [place] [address] 07/23/2021 14:18:34 07/23/2021 15:23:40 Hyperlipidemia 82521860 E78.5 HLD managed on Atorvastat in 40mg QHS.Patiorin t did not come fasting today and needs repeat lipids.Candelario lopez check at upcoming CPE. Essential hypertension 21898502 I10 BP elevated at previous PCP visits and elevated today in office.We discussed importance of BP treatment at this time to prevent CV events.Candelario lopez start Lisinopril 10mg QD - aware of side effects including: dry cough, ARF, hyperkalem ia, angioedema .Check renal function and electrolyt es.DASH diet, low salt, and exercise.F ollow up in 2 weeks for BP re-check. Prediabetes 758876491 R7 3.03 Check A1c.Encour aged limiting carbohydra herve and sweets along with moderate intensity exercise to prevent progressio n into diabetes. [id number] NINOSKA RIVAS [facility] [address] [facility] [address] [place] [address] 08/11/2021 10:27:04 08/11/2021 10:57:48 Essential hypertension 45978298 I10 BP elevated on arrival (140/86) and remains elevated at end of visit (138/86).S tarted on Lisinopril 10mg QD at last visit and we discussed increasing to 20mg QD today as BP readings remain uncontroll ed ; he is agreeable. Recheck renal function, lytes, and WBC count (mild elevation at last check).FITCH H diet, low salt, and exercise advised.Fo llow up in 2 weeks as scheduled for CPE and repeat BP. [id number] Chen Peña MD [facility] [address] [facility] [place] [place] [address] 08/25/2021 07:58:46 08/25/2021 08:42:04 Adult health examination [id number] Z00.00 Patient should discuss medical decisions with Health Care Proxy. Recommende d screenings included colonoscop y screening age 50, earlier based on family history/ri sk factors; one time screen for hepatitis C if born between 4741-5424 or has risk factors. Reviewed vaccines and current recommenda tions. Basic health topics include aerobic exercise, importance of healthy/ba lanced diet and minimizing caffeine and alcohol. Administra tion of diphtheria, pertussis, and tetanus vaccine 892349952 Z23 given Screening for malignant neoplasm of colon 564180542 Z12.11 Patiet reported having cologuard recently.W ill look for results Screening for malignant neoplasm of prostate 564895738 Z12.5 check PSA Hyperlipidemia 34498884 E78.5 ON statin.Candelario l check Lipids Essential hypertension 22899524 I10 BP still elevated.W ill increase lisinopril to 30 mg po q day.Check BMP in 2 weeksf/u in 4 weeks.Disc ussed about salt restrictio n nan exercise/ [id number] NINOSKA Marsh [facility] [address] [facility] [place] [address] 04/15/2022 10:00:24 04/15/2022 12:06:34 Hyperlipidemia 07363707 E78.5 Managed with atorvastat in 20 mg and tolerating wellWill check Lipids fasting (triglycer ides elevated at last check)Disc ussed diet and exercise Essential hypertension 46984679 I10 Well managed with lisinopril to 30 mg po q day.Check CMPDiscuss ed about salt restrictio n and exerciseF/ U 3-6 months [id number] Stacy Braxton NP [facility] [address] [facility] [place] [address] 04/12/2024 16:20:39 04/13/2024 07:08:33 Adult health examination [id number] Z00.00 Patient should discuss medical decisions with Health Care Proxy. Recommende d screenings included colonoscop y screening age 45, earlier based on family history/ri sk factors; one time screen for hepatitis C if born between 4908-2546 or has risk factors. Recommend annual low-dose CT scan screening for high-risk individual s ages 50 to 80 years with 20 pack-year history of smoking and current smoker or quit within past 15 years. Reviewed vaccines and current recommenda tions. Basic health topics include aerobic exercise, importance of healthy/ba lanced diet and minimizing caffeine and alcohol. Screening for malignant neoplasm of colon 442310124 Z12.11 Colonoscop y 2017 Viral screening 43213149 4 Z11.59 The USPSTF recommends one time screening for hepatitis C virus (HCV) infection in adults aged 18 to 79 years. Varicella vaccination 68 618464 Z23 Advance care planning 71 0219782 Z71.89 Patient completed today Screening for malignant neoplasm of prostate 017566287 Z12.5 For men aged 55 to 69 years, the decision to undergo periodic prostate-s pecific antigen (PSA)-base d screening for prostate cancer should be an individual one. Before deciding whether to be screened, men should have an opportunit y to discuss the potential benefits and harms of screening with their clinician and to incorporat e their values and preference s in the decision. After considerin g the patient's unique circumstan deandre, and the pros and cons of the alternativ es, the patient has decided to be screened. Essential hypertension 85978604 I10 Your blood pressure is well controlled todayCont lisinopril 30 mg daily Hyperlipidemia 55325620 E78.5 LDL well controlled Continue Atorvastat in 20 mg Continue working to enhance nutritiona l changes, lowering carbs, sugars, fats, adding 25-45 gms fiber, increase water intake to 48 oz dailyWalki ng is an evidenced based benefit to lowering risk for cardiovasc ular disease onset and progressio nAim for 150 minutes per week of sustained aerobic fitness approaches Obesity 446082197 E66.9 BMI 33even 5-10 % reduction in weight is known to prevent onset of cardiovasc ular disease and in some cases, reduce risk of future disease related complicati ons to kidney, liver, heart, brain. You are doing great work as you work toward improved health outcomes Health Concerns Section Related Observation LastModified by Organization Detai ls LastModified Time None Recorded Concern Status LastModified by Organization Details LastModified Time None Recorded Advance Directives Directive Y: Karen Ferrer - Payers Insurance Date Sequence Insurance Name Policy Number Policy Ridley Covered Member ID Ridley Member ID Guarantor Name 03/16/2025 1 LY [id number] Karen Glynn [id number] Kwame Renard Notes Date Note Type Note Provider Name and Address Organization Details Recorded Time 2 text/html ROS as noted in the HPI Patient presents to the office as a new patient establishing care. Kd 56 YO M coming in as a new patient to facility, here to establish care.Patient is transferring here from [place], [place].PMHx includes elevated BP, HLD, prediabetes, family hx of prostate CA (father in his 70s).Patient is currently only managed on Atorvastatin 20mg QHS.BP elevated on arrival at 142/90.States his BP has been borderline for some time.Denies any CV symptoms, SOB, dizziness, vision changes. Chen Peña MD [address] [place] [address], [phone], [facility] 07/27/2021 18:27:06 2 text/html ROS as noted in the HPI Patient presents to the office for a HTN F/U. 56 YO M with hx of prediabetes, HTN, hyperlipidemia.Preseting for follow up on his blood pressure today.At last visit we started him on Lisinopril 10mg QD.He reports compliance with his medication and denies any side efffects.BP elevated on arrival at 140/86 and BP remains elevated at end of visit.Not checking readings at home.He reports no added salt and working hard at diet and exercise.Denies any CV symptoms, SOB, dizziness, vision changes. Chen Peña MD [address] [place] [address], [phone], [facility] 08/12/2021 10:36:03 2 text/html Pt presents to office today for his annual physical exam. Pt is UTD with his Covid x 3 vaccines, his last Colonoscopy was done in 2017 with a recommended 5 yr f/u - ck Pt here today for CPE.Patient completed covid vaccine and booster.Completed Flu shot.Colonoscopy done in 2017 normal and due now.Tdap more than 10 years agoPatient started on lisinopril and currently taking 20 mg a day.Denies any side effects. Chen Peña MD [address] [place], [phone], [facility] 08/25/2021 08:31:34 2 text/html ROS as noted in the HPI Pt. presents in office today for f/u HTN and Hyperlipidemia. - JT Prem is a 56 YO M with hx of prediabetes, HTN, hyperlipidemia.He presents today for HTN and HLD follow upHe has no concernsLisinopril was increased to 30 mg at his last visitHe has not noticed any adverse effectshe does not check BP at home Chen Peña MD [address] [place], [phone], [facility] 04/16/2022 11:48:52 4 text/html ROS as noted in the HPI Pt presents to office today for his annual physical exam. - ck UTD:TDAPFLUCOVID x 5Non-smokerHealth Care Proxy DUE:Hep C screeningShingrixPSA screening 08/25/21colon cancer screening Prem Glynn, age 59 yrs presents for annual CPE He feels well today.Recently retired. [facility] with his wifeNo children PMH hypertension, HLD, obesity (BMI 33) Chen Peña MD [address] [place], [phone], [facility] 04/17/2024 13:55:42
== END 2025-06-20 15:34 | disposition home or self-care (01) ==
LOC: HO.HGI 15:00
PROVIDERS: PCP Internal Medicine; Visit Provider Nurse Practitioner Family
DX: Z01.818 Encounter for other preprocedural examination (principal); Z12.11 Encounter for screening for malignant neoplasm of colon
CPT/HCPCS: S0285